=== PATIENT | female | born 1990 | race Caucasian/White ===

== ENCOUNTER 2017-08-15 06:01 | Day surgery (SDC) | payer BC ==
[2017-08-10 18:28] VITALS: BMI 22.4
--- NOTE | 2017-08-14 11:05 | P.HPOB ---
History of Present Illness H&P Date: 08/14/17 Chief Complaint: Missed This patient is a pleasant 27 yr female estimated gestational age 6-7 weeks who is presenting for a suction D&C secondary to a missed . She has had serial ultrasounds showing an abnormal gestational yolk. She did at one point have a faint heart beat, however this stopped. She and I and her have discussed options and she wishes to proceed with a suction D&C for treatment. Review of Systems Constitutional: Denies chills, Denies fever Ears, nose, mouth and throat: Denies headache, Denies sore throat Respiratory: Denies cough Genitourinary: Reports Menstruation: Reports amenorrhea Past Medical History Additional Past Medical History / Comment(s): Blader issues as a child requiring surgical repair per Dr. St. History of Any Multi-Drug Resistant Organisms: None Reported Additional Past Surgical History / Comment(s): URETER REPAIRED AGE 8. EXC WISDOM TEETH. Past Anesthesia/Blood Transfusion Reactions: No Reported Reaction Past Psychological History: No Psychological Hx Reported Smoking Status: Never smoker Past Alcohol Use History: None Reported Past Drug Use History: None Reported - Past Family History Mother Family Medical History: No Reported History Medications and Allergies Home Medications Medication Instructions Recorded Confirmed Type Pnv No.95/Ferrous Fum/Folic AC 1 each PO DAILY 08/10/17 08/10/17 History [ Multivitamin Tablet] Allergies Allergy/AdvReac Type Severity Reaction Status Date / Time No Known Allergies Allergy Verified 08/10/17 18:08 Exam - OBG Physical Exam Abdomen: bowel sounds normal, no diffuse tenderness, no bruit present, no guarding noted, no hepatomegaly, no splenomegaly, no mass Vulva: both: normal Vagina: normal moisture, no discharge Cervix: no lesion, no discharge Uterus: normal size (About 6 weeks size), normal contour Results Ultasound shows a non-viable intrauterine about 6 weeks size. Assessment and Plan (1) Missed Narrative/Plan: This is a pleasant 27 yr female approximately 6 weeks gestation with a missed requesting suction D&C for treatment. I have discussed the surgery and risks in detail: infection, bleeding, possible uterine perforation. All of the patients questions have been answered and a written consent obtained. Status: Acute
[~2017-08-15 06:01] MED LIST: DEXAMETHASONE SOD PHOSPHATE 10 MG/ML 1 ML VIAL IV ONE; HYDROmorphone 0.5 MG/0.5 ML SYRINGE IVP PRN; LACTATED RINGERS 1,000 ML IV SCH; LIDOCAINE 1% 20 ML VIAL (10MG/ML) FOR IV START INTRADERMA PRN; ONDANSETRON 4 MG/2 ML VIAL IVP ONE; Pre Op ABX Message 1 EACH MISC MISCELLANE ONE; SCOPOLAMINE 1.5MG/72HR PATCH TRANSDERM ONE
[2017-08-15] MEDS ORDERED: fentaNYL (PF) 50 MCG/ML 2 ML AMP ONE (06:55)
[2017-08-15] MEDS ORDERED: KETOROLAC 30 MG/ML 1 ML VIAL ONE (06:55)
[2017-08-15] MEDS ORDERED: LIDOCAINE 1% INJ 10MG/ML (20 ML MDV) ONE (06:55)
[2017-08-15] MEDS ORDERED: MIDAZOLAM 2 MG/2 ML VIAL ONE (06:55)
[2017-08-15] MEDS ORDERED: PROPOFOL 10 MG/ML 20 ML VIAL IV ONE (06:55)
[2017-08-15 07:30] VITALS: TEMP 97
--- NOTE | 2017-08-15 07:30 | P.OP ---
Date of Procedure: 08/15/17 Preoperative Diagnosis: Missed 6 weeks. Postoperative Diagnosis: Same Procedure(s) Performed: Suction D&C Anesthesia: MAC Surgeon: Primo Turk Estimated Blood Loss (ml): 100 Urine output (ml): 25 Pathology: other (Uterine contents) Condition: stable Disposition: PACU Indications for Procedure: Please see dictated H&P for intimate details of this patient's admission. Brief summary is a pleasant 27-year-old 1 para 0 female estimated gestational age 6 weeks who's had serial ultrasounds most recently showing nonviable . Patient I discussed options including expected management versus D&C and she is elected to proceed with D&C at this time. Patient does understand this procedure and risks including risks of infection, bleeding, possible uterine perforation. All the patient's questions are answered and a written consent is obtained. Operative Findings: Uterine contents consistent with products of conception Description of Procedure: This patient is taken to the operating room where she is laid in the supine position. She subsequently undergoes general mask anesthesia without incident. With an adequate level of anesthesia she's placed in dorsal lithotomy position. She has a vaginal perineal prep and drape. Examination under anesthesia shows a mid to anteverted uterus. I then place a red Cesar catheter and the bladder and drain the urine for 25 mL. Weighted speculum was placed in the posterior vagina. The anterior lip of the cervix was grabbed with an Allis clamp. The cervix is quite stenotic but is dilated to allow a 8 curved suction curette into the uterine cavity. Suction is applied and a generous amount of tissue is removed. Multiple passes are done until no further tissue was noted. A sharp curet is then gently placed in the uterine cavity and 4 quadrant curettage is done for no further tissue. A final pass of the suction curet is done again no further tissue was noted. With this done the procedure is then ended. The Allis clamp and weighted speculum was removed. All counts are correct 3. There are no complications. Patient is awakened from anesthesia and taken recovery room in satisfactory condition.
[2017-08-15 08:19] VITALS: RESP 18
[2017-08-15 08:41] VITALS: BP 112/82; PULSE 74
[2017-08-26 14:31] LABS: Mis test requested (Non-blood) DNA PLOIDY
== END 2017-08-15 09:00 | disposition home or self-care (01) ==
LOC: OR 06:01
PROVIDERS: ATTEND Obstetrics & Gynecology
DX: O02.1 Missed abortion (principal); N88.2 Stricture and stenosis of cervix uteri; Z3A.01 Less than 8 weeks gestation of pregnancy
CPT/HCPCS: 59820; 88182; 88305; J2250; J1100; J2405; J2001; J3010; J1885; J2704; J1170

== ENCOUNTER → 2018-05-10 | Outpatient (CLI) | payer BC ==
[2018-05-10 11:59] LABS: HCT 34.5 % (34.0-46.0); HGB 12.8 gm/dL (11.4-16.0); MCH 31.9 pg (25.0-35.0); MCV 86.3 fL (80.0-100.0); Mean Platelet Volume 7.3; Platelet Count 226 k/uL (150-450); RDW 12.6 % (11.5-15.5); WBC 8.3 k/uL (3.8-10.6)
[2018-05-10 12:51] LABS: Glucose 77 mg/dL (74-99)
[2018-05-10 18:19] LABS: HIV AB P24 Non-Reactive (Non-Reactive); HIV P24 AG Non-Reactive (Non-Reactive)
== END | disposition home or self-care (01) ==
LOC: LABWHC1 11:28
PROVIDERS: ATTEND Obstetrics & Gynecology
DX: O26.811 Pregnancy related exhaustion and fatigue, first trimester (principal); Z3A.00 Weeks of gestation of pregnancy not specified
CPT/HCPCS: 36415; 82565; 82947; 85027; 86592; 86762; 86850; 86900; 86901; 87340; 87390

== ENCOUNTER 2018-11-03 16:40 | Inpatient (IN) | payer BC ==
[2018-11-03 17:12] LABS: Appearance,Urine Clear (Clear); Bacteria,Urine Rare /hpf; Bilirubin,Urine Negative (Negative); Blood,Urine Negative (Negative); Color,Urine Yellow; Glucose,Urine (UA) Negative (Negative); Ketones,Urine 2+ (Negative); Leukocyte Esterase,Urine Trace (Negative); Mucus,Urine Rare /hpf; Nitrite,Urine Negative (Negative); PH, Urine 6.5 (5.0-8.0); Protein,Urine Trace (Negative); RBC,Urine 3 /hpf (0-5); Specific Gravity,Urine 1.019 (1.001-1.035); Squamous Epithelial Cell,Urine 1 /hpf (0-4); Urobilinogen,Urine <2.0 mg/dL (<2.0); WBC,Urine 6 /hpf (0-5)
[2018-11-03] MEDS ORDERED: DINOPROSTONE 10 MG INSERT.ER VAGINAL ONE (17:44)
[2018-11-03 17:55] LABS: Basophils % (A) 0 %; Eosinophils # (A) 0.1 k/uL (0-0.7); Eosinophils % (A) 1 %; HCT 34.3 % (34.0-46.0); HGB 11.2 gm/dL (11.4-16.0); Lymphocytes # (A) 1.6 k/uL (1.0-4.8); Lymphocytes % (A) 20 %; MCH 27.6 pg (25.0-35.0); MCHC 32.6 g/dL (31.0-37.0); MCV 84.9 fL (80.0-100.0); Monocytes # (A) 0.4 k/uL (0-1.0); Monocytes % (A) 5 %; Neutrophils # (A) 5.5 k/uL (1.3-7.7); Neutrophils % (A) 69 %; Platelet Count 288 k/uL (150-450); RBC 4.04 m/uL (3.80-5.40); RDW 13.1 % (11.5-15.5)
[2018-11-03 18:07] LABS: ALT 34 U/L (9-52); AST 21 U/L (14-36); Blood Urea Nitrogen 16 mg/dL (7-17); LDH 397 U/L (313-618); Uric Acid 5.2 mg/dL (3.7-7.4)
[2018-11-03 18:16] VITALS: BMI 28.1
--- NOTE | 2018-11-03 19:54 | P.HPOB ---
History of Present Illness H&P Date: 11/03/18 Chief Complaint: Gestational hypertension This patient is a pleasant 28-year-old 2 para 0 female estimated date of confinement 11/12/2018 estimated gestational age 38-5/7 weeks who presented to my office today for routine visit on have elevated diastolic blood pressure. Patient sent to labor and delivery for evaluation and labs were normal but had multiple blood pressures with a diastolic greater than 90. Patient's on have any symptomatology at this time however I discussed current guidelines recommending delivery after 37 weeks if persistent elevated systolic or diastolic blood pressures. Patient's cervix is dilated. Patient's is complicated by the left choroid plexus cyst which resolved and she is had a normal level III ultrasound. care is otherwise been uncomplicated. Review of Systems Genitourinary: Reports Menstruation: Reports amenorrhea Past Medical History Additional Past Medical History / Comment(s): Blader issues as a child requiring surgical repair per Dr. St. History of Any Multi-Drug Resistant Organisms: None Reported Additional Past Surgical History / Comment(s): URETER REPAIRED AGE 8. EXC WISDOM TEETH. Past Anesthesia/Blood Transfusion Reactions: No Reported Reaction Past Psychological History: No Psychological Hx Reported Smoking Status: Never smoker Past Alcohol Use History: None Reported Past Drug Use History: None Reported - Past Family History Mother Family Medical History: No Reported History Medications and Allergies Home Medications Medication Instructions Recorded Confirmed Type Pnv No.95/Ferrous Fum/Folic AC 1 each PO DAILY 08/10/17 11/03/18 History [ Multivitamin Tablet] Allergies Allergy/AdvReac Type Severity Reaction Status Date / Time No Known Allergies Allergy Verified 08/10/17 18:08 Exam Vital Signs Temp Resp BP 11/03/18 18:08 97.3 F L 16 126/89 Intake and Output 11/03/18 11/03/18 11/03/18 06:59 14:59 22:59 Other: Weight 65.317 kg - OBG Physical Exam Abdomen: bowel sounds normal, no diffuse tenderness, no bruit present, no guarding noted, no hepatomegaly, no splenomegaly, no mass Vulva: both: normal Vagina: normal moisture, no discharge Cervix: no lesion (Cervix is fingertip approximately 50% effaced.), no discharge Uterus: enlarged (Fundal height is 37 cm) Results blood work shows she is O positive, rubella indeterminate, hepatitis B negative, HIV nonreactive, RPR nonreactive, Glucola was normal, ultrasounds have been normal Result Diagrams: 11/03/18 17:43 11/03/18 17:43 Abnormal Lab Results - Last 24 Hours (Table) 11/03/18 11/03/18 Range/Units 17:00 17:43 Hgb 11.2 L (11.4-16.0) gm/dL Urine Protein Trace H (Negative) Urine Ketones 2+ H (Negative) Ur Leukocyte Esterase Trace H (Negative) Urine WBC 6 H (0-5) /hpf Urine Bacteria Rare H (None) /hpf Urine Mucus Rare H (None) /hpf Assessment and Plan Assessment: This is a pleasant 28-year-old 2 para 0 female 38-5/7 weeks' gestation with gestational hypertension. Preeclampsia evaluation is negative. Due to the gestational age current recommendations are to proceed with delivery at this time. Patient is a unfavorable cervix therefore Cervidil be placed to proceed with most likely Pitocin induction of labor tomorrow. Discussed the patient's clinical situation indication for delivery. Patient is in agreement wishes to proceed. (1) with 38 completed weeks gestation Current Visit: Yes Status: Acute Code(s): Z3A.38 - 38 WEEKS GESTATION OF SNOMED Code(s): 73651979 (2) Gestational hypertension Current Visit: Yes Status: Acute Code(s): O13.9 - GESTATIONAL HTN W/O SIGNIFICANT PROTEINURIA, UNSP TRIMESTER SNOMED Code(s): 881958126
[2018-11-04] MEDS ORDERED: TERBUTALINE 1 MG/ML VIAL SQ PRN (02:36)
[2018-11-04] MEDS ORDERED: OXYTOCIN 20 UNITS/1000 ML NS 1,000 ML IV SCH ×2 (02:36→20:45)
[2018-11-04] MEDS ORDERED: METHYLERGONOVINE 0.2 MG/ML 1 ML AMP IM PRN (02:36)
[2018-11-04] MEDS ORDERED: OXYTOCIN 10 UNIT/ML 1 ML VIAL IM PRN (02:36)
[2018-11-04] MEDS ORDERED: CARBOPROST TROMETHAMINE 250 MCG/ML 1 ML AMP IM PRN (02:36)
[2018-11-04] MEDS ORDERED: LIDOCAINE 0.5% (PF) 5 MG/ML (50 ML SDV) SQ PRN (02:36)
[2018-11-04] MEDS: LACTATED RINGERS 1,000 ML IV SCH ×4 (02:40→18:36)
[2018-11-04] MEDS: BUTORPHANOL 1 MG/ML 1 ML VIAL IV PRN ×3 (02:46→09:10)
[2018-11-04] MEDS ORDERED: SODIUM CHLORIDE 0.9% 100 ML BAG ONE ×2 (10:27)
[2018-11-04] MEDS ORDERED: ROPIVACAINE 5MG/ML 20ML VIAL ONE (10:27)
--- NOTE | 2018-11-04 20:31 | P.PROBDLV ---
Vaginal Delivery Note - . Vaginal Delivery Note: Normal vaginal delivery viable male infant Apgars 9 and 9 delivery time is 2008 hours. Please see dictated H&P for intimate details of this patient's admission. Brief summary this is a pleasant 28-year-old 1 para 0 female 38-6/7 weeks gestation admitted last evening for Cervidil placement secondary to gestational hypertension.'s morning patient is approximately 1-2 simmers dilated is artificial rupture membranes for clear fluid. Labor is induced with Pitocin per protocol. Patient's labor progresses normally and she does get an epidural for pain control. Patient does get to complete and pushes for approximately 1 hour and 15 minutes and pushes the head to the perineum. At this time it is evident the perineum is tearing and therefore a small midline episiotomy is made. We then have controlled delivery of infant's head over the perineum. Mouth and nares are bulb suctioned. There is no evidence of nuchal cord. 's position was straight OA at this time. With gentle downward traction we have delivery the anterior and posterior shoulder and rest this 's body. Is a vigorous viable male Apgars are 9 and 9 delivery time is 2009 hours. After delivery of the the umbilical cord is sloughed to quit pulsating and then clamped. It is then transected and thought to be trivascular. Placenta spontaneously delivered intact. Estimated blood loss is 1 50 mL. There is a second-degree laceration was repaired with 3- 0 Vicryl usual fashion good reapproximation is noted. All counts are correct 3. There are no complications. Infant and mother stable delivery room.
[2018-11-04] MEDS ORDERED: BISACODYL 10 MG SUPP RECTAL PRN (20:32)
[2018-11-04] MEDS ORDERED: WITCH HAZEL 1 EACH MED..PAD TOPICAL PRN (20:32)
[2018-11-04] MEDS ORDERED: BENZOCAINE/MENTHOL SPRAY 1 GM/SPRAY AEROSOL TOPICAL PRN (20:32)
[2018-11-04] MEDS ORDERED: SIMETHICONE 80 MG CHEWABLE PO PRN (20:32)
[2018-11-04] MEDS ORDERED: diphenhydrAMINE 25 MG CAP PO PRN (20:32)
[2018-11-04] MEDS ORDERED: LANOLIN CREAM 5 GM TUBE TOPICAL PRN (20:32)
[2018-11-04] MEDS ORDERED: MEASLES-MUMPS-RUBELLA VACC/PF 12,500 UNIT/0.5 ML VIAL SQ ONE (20:32)
[2018-11-04] MEDS ORDERED: ACETAMINOPHEN TAB 325 MG TAB PO PRN (20:32)
[2018-11-04] MEDS ORDERED: ZOLPIDEM 5 MG TAB PO PRN (20:32)
[2018-11-04] MEDS ORDERED: diphenhydrAMINE 50 MG/ML 1 ML VIAL IVP PRN (20:32)
[2018-11-04] MEDS ORDERED: HYDROCORTISONE 2.5% RECTAL CREAM 30 GM TUBE RECTAL PRN (20:32)
[2018-11-04] MEDS: IBUPROFEN 600 MG TAB PO PRN (20:45)
[2018-11-05] MEDS: IBUPROFEN 600 MG TAB PO PRN ×3 (03:34→20:51)
[2018-11-05 06:27] LABS: Basophils % (A) 0 %; Eosinophils % (A) 0 %; HCT 29.1 % (34.0-46.0); Lymphocytes # (A) 1.3 k/uL (1.0-4.8); Lymphocytes % (A) 9 %; MCHC 32.4 g/dL (31.0-37.0); MCV 86.5 fL (80.0-100.0); Monocytes # (A) 0.7 k/uL (0-1.0); Monocytes % (A) 5 %; Neutrophils # (A) 12.2 k/uL (1.3-7.7); Neutrophils % (A) 84 %; Platelet Count 285 k/uL (150-450); RBC 3.37 m/uL (3.80-5.40); RDW 13.5 % (11.5-15.5); WBC 14.5 k/uL (3.8-10.6)
[2018-11-05 06:34] LABS: HGB 9.4 gm/dL (11.4-16.0)
--- NOTE | 2018-11-05 06:58 | P.PNOBGVD ---
Subjective - Subjective Patient reports: Reports appetite normal, Reports voiding normally, Reports pain well controlled, Reports ambulating normally : doing well Objective - Latest Vital Signs Latest vital signs: Vital Signs Temp Pulse Resp BP 11/05/18 03:41 97.6 F 82 16 120/71 11/05/18 00:14 98.4 F 91 16 121/80 11/04/18 22:18 97.0 F L 85 18 134/78 11/04/18 21:48 98.4 F 85 18 142/81 11/04/18 21:18 98.4 F 76 16 143/82 11/04/18 21:03 98.0 F 16 11/04/18 20:48 94 18 131/70 11/04/18 20:33 107 H 18 128/68 11/04/18 20:18 97.4 F L 100 18 128/83 Intake and Output 11/04/18 11/04/18 11/05/18 14:59 22:59 06:59 Intake Total 3000 42.05 1000 Output Total 150 Balance 3000 -107.95 1000 Intake: IV 3000 Lactated Ringers 1,000 ml 3000 @ 125 mls/hr IV .Q8H [facility] Rx#:[id number] Intake, IV Titration 42.05 1000 Amount Oxytocin 20 Units/1000 ml 42.05 Ns 1,000 ml @ 1 MILLIUNIT/MIN 3 mls/hr IV .Q24H [facility] Rx#:[id number] Oxytocin 20 Units/1000 ml 1000 Ns 1,000 ml @ Per Protocol IV .Q0M [facility] Rx#: [id number] Output: Estimated Blood Loss 150 Other: # Voids 1 1 - Exam Lungs: bilateral: normal Chest: Normal S1, Normal S2 Extremities: Present: normal Abdomen: Present: normal appearance, soft Uterus: Present: normal, firm - Labs Labs: Abnormal Lab Results - Last 24 Hours (Table) 11/05/18 Range/Units 06:16 WBC 14.5 H (3.8-10.6) k/uL RBC 3.37 L (3.80-5.40) m/uL Hgb 9.4 L D (11.4-16.0) gm/dL Hct 29.1 L (34.0-46.0) % Neutrophils # 12.2 H (1.3-7.7) k/uL Microbiology - Last 24 Hours (Table) 11/03/18 17:00 Urine Culture - Final Urine,Clean Catch Assessment and Plan Assessment: Patient is resting without complaints. Vital signs are stable and she is afebrile. Uterus is firm nontender she's having normal lochia. My impression is this is a normal course. Plan is to continue routine care. (1) with 38 completed weeks gestation Current Visit: Yes Status: Acute Code(s): Z3A.38 - 38 WEEKS GESTATION OF SNOMED Code(s): 27725115 (2) Gestational hypertension Current Visit: Yes Status: Acute Code(s): O13.9 - GESTATIONAL HTN W/O SIGNIFICANT PROTEINURIA, UNSP TRIMESTER SNOMED Code(s): 531413893
[2018-11-05] MEDS: SENNOSIDES-DOCUSATE SODIUM 1 EACH TAB PO SCH ×2 (09:41→20:06)
[2018-11-05 20:57] VITALS: RESP 18
--- NOTE | 2018-11-06 06:11 | P.PNOBGVD ---
Subjective - Subjective Patient reports: Reports appetite normal, Reports voiding normally, Reports pain well controlled, Reports ambulating normally : doing well Objective - Latest Vital Signs Latest vital signs: Vital Signs Temp Pulse Resp BP Pulse Ox 11/06/18 00:00 98.4 F 97 18 132/93 98 11/05/18 20:00 98.4 F 113 H 18 130/78 98 11/05/18 16:00 97.8 F 84 16 134/82 11/05/18 08:00 97.4 F L 101 H 16 124/78 - Exam Lungs: bilateral: normal Chest: Normal S1, Normal S2 Extremities: Present: normal Abdomen: Present: normal appearance, soft Uterus: Present: normal, firm - Labs Labs: Abnormal Lab Results - Last 24 Hours (Table) 11/05/18 Range/Units 06:16 WBC 14.5 H (3.8-10.6) k/uL RBC 3.37 L (3.80-5.40) m/uL Hgb 9.4 L D (11.4-16.0) gm/dL Hct 29.1 L (34.0-46.0) % Neutrophils # 12.2 H (1.3-7.7) k/uL Microbiology - Last 24 Hours (Table) 11/03/18 17:00 Urine Culture - Final Urine,Clean Catch Assessment and Plan Assessment: day #2. Patient is resting without complaints. Vital signs are stable and she is afebrile. Uterus is firm nontender and she is having normal lochia. I impression is a normal course. Plan is to continue routine care discharge home later today. (1) with 38 completed weeks gestation Current Visit: Yes Status: Acute Code(s): Z3A.38 - 38 WEEKS GESTATION OF SNOMED Code(s): 11885215 (2) Gestational hypertension Current Visit: Yes Status: Acute Code(s): O13.9 - GESTATIONAL HTN W/O SIGNIFICANT PROTEINURIA, UNSP TRIMESTER SNOMED Code(s): 027706207
--- NOTE | 2018-11-06 06:14 | P.DS ---
Providers Date of admission: 11/03/18 17:35 Expected date of discharge: 11/06/18 Attending physician: Primo Turk Primary care physician: Stated None - Discharge Diagnosis(es) (1) with 38 completed weeks gestation Current Visit: Yes Status: Acute (2) Gestational hypertension Current Visit: Yes Status: Acute Hospital Course: Please see dictated H&P for intimate details of this patient's admission. Brief summary this is a pleasant 28-year-old 2 para 0 female who is admitted to labor and delivery with gestational hypertension. Patient is two- stage induction of labor and subsequently goes on have a vaginal delivery viable male infant. Please see dictated delivery note. day #2 patient's felt to be stable for discharge home follow up with me in 6 weeks. Procedures: Two-stage induction of labor and normal vaginal delivery Patient Condition at Discharge: Good Plan - Discharge Summary Discharge Rx Participant: No New Discharge Prescriptions: New Ibuprofen [Motrin] 600 mg PO Q6HR PRN #40 tab PRN Reason: Mild Pain Or Fever >= 100.5 No Action Pnv No.95/Ferrous Fum/Folic AC [ Multivitamin Tablet] 1 each PO DAILY Discharge Medication List Pnv No.95/Ferrous Fum/Folic AC [ Multivitamin Tablet] 1 each PO DAILY [History] Ibuprofen [Motrin] 600 mg PO Q6HR PRN #40 tab 11/06/18 [Rx] Follow up Appointment(s)/Referral(s): Primo Turk MD [STAFF PHYSICIAN] - 6 Weeks Patient Instructions/Handouts: Vaginal Delivery (DC) Activity/Diet/Wound Care/Special Instructions: No intercourse or anything per vagina for 6 weeks. Please call if any fever, chills, excessive vaginal bleeding, and/or abdominal pain. Discharge Disposition: HOME SELF-CARE
[2018-11-06] MEDS: IBUPROFEN 600 MG TAB PO PRN (07:17)
[2018-11-06] MEDS: SENNOSIDES-DOCUSATE SODIUM 1 EACH TAB PO SCH (08:00)
[2018-11-06 09:28] VITALS: BP 129/81; PULSE 75; TEMP 97.4
== END 2018-11-06 11:07 | disposition home or self-care (01) | DRG 807 ==
LOC: FBPOP 16:40 → 4FBP 17:35
PROVIDERS: ADMIT Obstetrics & Gynecology; ATTEND Obstetrics & Gynecology
PROC: 3E0P7VZ Introduction of Hormone into Female Reproductive, Via Natural or Artificial Opening (ICD-10-PCS; 2018-11-03)
PROC: 10E0XZZ Delivery of Products of Conception, External Approach (ICD-10-PCS; principal; 2018-11-04)
PROC: 0KQM0ZZ Repair Perineum Muscle, Open Approach (ICD-10-PCS; 2018-11-04)
PROC: 00HU33Z Insertion of Infusion Device into Spinal Canal, Percutaneous Approach (ICD-10-PCS; 2018-11-04)
PROC: 3E0R3BZ Introduction of Anesthetic Agent into Spinal Canal, Percutaneous Approach (ICD-10-PCS; 2018-11-04)
PROC: 0W8NXZZ Division of Female Perineum, External Approach (ICD-10-PCS; 2018-11-04)
PROC: 10907ZC Drainage of Amniotic Fluid, Therapeutic from Products of Conception, Via Natural or Artificial Opening (ICD-10-PCS; 2018-11-04)
PROC: 3E033VJ Introduction of Other Hormone into Peripheral Vein, Percutaneous Approach (ICD-10-PCS; 2018-11-04)
DX: O13.4 Gestational [pregnancy-induced] hypertension without significant proteinuria, complicating childbirth (principal); Z37.0 Single live birth; O70.1 Second degree perineal laceration during delivery; Z3A.38 38 weeks gestation of pregnancy
CPT/HCPCS: 59025; 81001; 82565; 83615; 84450; 84460; 84520; 84550; 85025; 86850; 86900; 86901; 87086; 90471; 90707; 99215

== ENCOUNTER → 2020-02-19 | Outpatient (CLI) | payer BC ==
--- NOTE | 2020-02-27 09:35 | MM ---
Reason for exam: clinical finding. Baseline mammogram. History: Took hormonal contraceptives for 12 years beginning at age 15. Indicated problem(s): lump or thickening in the left breast. Physical Findings: Nurse Summary: 1cm nodule in the left breast at 12 o'clock (nurse wes). MG Diagnostic Mammo w CAD DESTINEY Bilateral LM view(s) were taken. ML view(s) were taken of the left breast. The breast tissue is heterogeneously dense. This may lower the sensitivity of mammography. There is no discrete abnormality including area of concern. These results were verbally communicated with the patient and result sheet given to the patient on 02/19/20. ASSESSMENT: Negative, BI-RAD 1 RECOMMENDATION: Routine screening mammogram of both breasts at age 40. Manage patient on a clinical basis.
--- NOTE | 2020-02-27 09:38 | USB ---
Reason for exam: clinical finding. History: Took hormonal contraceptives for 12 years beginning at age 15. Indicated problem(s): lump or thickening in the left breast. US Breast LT Left complete breast ultrasound includes all four quadrants, the retroareolar region and axilla. Finding demonstrates no cystic or solid lesion seen. These results were verbally communicated with the patient and result sheet given to the patient on 02/19/20. ASSESSMENT: Incomplete: need additional imaging evaluation, BI-RAD 0 RECOMMENDATION: Special view mammogram of both breasts.
== END | disposition home or self-care (01) ==
LOC: RADMAMWWP 10:09
PROVIDERS: ATTEND Family Medicine
DX: N63.20 Unspecified lump in the left breast, unspecified quadrant (principal); R92.8 Other abnormal and inconclusive findings on diagnostic imaging of breast
CPT/HCPCS: 77066

== ENCOUNTER → 2020-08-06 | Outpatient (CLI) | payer BC ==
[2020-08-06 11:52] LABS: HCT 36.5 % (34.0-46.0); HGB 12.6 gm/dL (11.4-16.0); MCH 30.6 pg (25.0-35.0); MCHC 34.4 g/dL (31.0-37.0); MCV 88.9 fL (80.0-100.0); Mean Platelet Volume 7.6; Platelet Count 262 k/uL (150-450); RBC 4.11 m/uL (3.80-5.40); RDW 11.6 % (11.5-15.5); WBC 7.4 k/uL (3.8-10.6)
[2020-08-06 20:21] LABS: HIV 2 AB Non-Reactive (Non-Reactive); HIV AB P24 Non-Reactive (Non-Reactive); HIV P24 AG Non-Reactive (Non-Reactive)
[2020-08-06 22:46] LABS: African American GFR (CKD) 141.8 (60.0-200.0); Non-African American GFR(CKD) 122.3 (60.0-200.0)
== END | disposition home or self-care (01) ==
LOC: LABWHC1 09:41
PROVIDERS: ATTEND Obstetrics & Gynecology
DX: Z34.81 Encounter for supervision of other normal pregnancy, first trimester (principal)
CPT/HCPCS: 36415; 82565; 82947; 85027; 86762; 86780; 86900; 86901; 87390

== ENCOUNTER → 2020-08-28 | Outpatient (CLI) | payer BC | END | disposition home or self-care (01) | LOC: LABWHC1 14:58 | PROVIDERS: ATTEND Physician Assistant | DX: Z20.828 Contact with and (suspected) exposure to other viral communicable diseases (principal) ==

== ENCOUNTER 2021-03-04 05:55 | Inpatient (IN) | payer BC, OTHER ==
--- NOTE | 2021-03-03 08:20 | P.HPOB ---
History of Present Illness H&P Date: 03/03/21 Chief Complaint: Requested induction of labor This patient is a pleasant 30-year-old 3 para 1 female estimated date of confinement 03/07/2021 estimated gestational age 39-4/7 weeks who presents to labor and delivery for requested induction of labor secondary to maternal discomfort. Patient's care has been uncomplicated. Patient does have a history of gestational hypertension but was on baby aspirin this has had no blood pressure problems. Patient also developed Covid on January 12. Patient is now uncomfortable requesting induction of labor. Review of Systems Genitourinary: Reports Menstruation: Reports amenorrhea Past Medical History Additional Past Medical History / Comment(s): Blader issues as a child requiring surgical repair per Dr. St. Covid infection January 12. History of Any Multi-Drug Resistant Organisms: None Reported Additional Past Surgical History / Comment(s): URETER REPAIRED AGE 8. EXC WISDOM TEETH. D&C. Past Anesthesia/Blood Transfusion Reactions: No Reported Reaction Past Psychological History: No Psychological Hx Reported Smoking Status: Never smoker Past Alcohol Use History: None Reported Past Drug Use History: None Reported - Past Family History Mother Family Medical History: No Reported History Medications and Allergies Home Medications Medication Instructions Recorded Confirmed Type Pnv No.95/Ferrous Fum/Folic AC 1 each PO DAILY 08/10/17 11/03/18 History [ Multivitamin Tablet] Ibuprofen [Motrin] 600 mg PO Q6HR PRN #40 tab 11/06/18 Rx Allergies Allergy/AdvReac Type Severity Reaction Status Date / Time No Known Allergies Allergy Verified 08/10/17 18:08 Exam - OBG Physical Exam Abdomen: bowel sounds normal, no diffuse tenderness, no bruit present, no guarding noted, no hepatomegaly, no splenomegaly, no mass Vulva: both: normal Vagina: normal moisture, no discharge Cervix: no lesion (Cervix in the office 2 cm dilated -2 station.), no discharge Uterus: enlarged (Fundal height is 39 cm) Results blood work shows she is O positive, rubella immune, RPR nonreactive, HIV is nonreactive, hepatitis B is negative, Glucola was normal, group B strep was negative, TDap was given on December 31, most recent ultrasound showed normal growth and anatomy. Assessment and Plan Assessment: This is a pleasant 30-year-old 3 para 1 female 39-4/7 weeks gestation who presents to labor and delivery for requested induction of labor. Plan is induction of labor and anticipate vaginal delivery. (1) 39 weeks gestation of Status: Acute Code(s): Z3A.39 - 39 WEEKS GESTATION OF SNOMED Code(s): 34823552 (2) Elective induction of labor planned Status: Acute Code(s): UDQ0890 - SNOMED Code(s): 062743680
[2021-03-04] MEDS ORDERED: METHYLERGONOVINE 0.2 MG/ML 1 ML AMP IM PRN (06:10)
[2021-03-04] MEDS ORDERED: TERBUTALINE 1 MG/ML VIAL SQ PRN (06:10)
[2021-03-04] MEDS ORDERED: OXYTOCIN 30 UNITS/500 ML NS 30 UNIT in SALINE 1 500ML.BAG IV SCH ×2 (06:10→14:26)
[2021-03-04] MEDS ORDERED: LIDOCAINE 0.5% (PF) 5 MG/ML (50 ML SDV) SQ PRN (06:10)
[2021-03-04] MEDS ORDERED: OXYTOCIN 10 UNIT/ML 1 ML VIAL IM PRN (06:10)
[2021-03-04] MEDS ORDERED: CARBOPROST TROMETHAMINE 250 MCG/ML 1 ML AMP IM PRN (06:10)
[2021-03-04] MEDS: LACTATED RINGERS 1,000 ML IV SCH ×2 (06:36→09:33)
[2021-03-04 07:05] LABS: Basophils % (A) 0 %; Eosinophils # (A) 0.1 k/uL (0-0.7); Eosinophils % (A) 1 %; HCT 31.7 % (34.0-46.0); HGB 10.9 gm/dL (11.4-16.0); Lymphocytes # (A) 1.3 k/uL (1.0-4.8); Lymphocytes % (A) 21 %; MCH 27.9 pg (25.0-35.0); MCHC 34.4 g/dL (31.0-37.0); Mean Platelet Volume 8.6; Monocytes # (A) 0.5 k/uL (0-1.0); Monocytes % (A) 8 %; Neutrophils # (A) 4.5 k/uL (1.3-7.7); Neutrophils % (A) 69 %; Platelet Count 214 k/uL (150-450); RBC 3.91 m/uL (3.80-5.40); RDW 13.4 % (11.5-15.5); WBC 6.5 k/uL (3.8-10.6)
[2021-03-04] MEDS ORDERED: BUTORPHANOL 1 MG/ML 1 ML VIAL IV PRN (08:18)
[2021-03-04] MEDS ORDERED: fentaNYL (PF) 50 MCG/ML 5 ML AMP ONE (09:11)
[2021-03-04] MEDS ORDERED: SODIUM CHLORIDE 0.9% 100 ML BAG ONE (09:11)
[2021-03-04] MEDS ORDERED: ROPIVACAINE 5MG/ML 20ML VIAL ONE (09:11)
[2021-03-04] MEDS ORDERED: bisacodyL 10 MG SUPP RECTAL PRN (14:26)
[2021-03-04] MEDS ORDERED: SIMETHICONE 80 MG CHEWABLE PO PRN (14:26)
[2021-03-04] MEDS ORDERED: HYDROCORTISONE 2.5% RECTAL CREAM 30 GM TUBE RECTAL PRN (14:26)
[2021-03-04] MEDS ORDERED: LANOLIN CREAM 5 GM TUBE TOPICAL PRN (14:26)
[2021-03-04] MEDS ORDERED: diphenhydrAMINE 50 MG/ML 1 ML VIAL IVP PRN (14:26)
[2021-03-04] MEDS ORDERED: BENZOCAINE/MENTHOL SPRAY 1 GM/SPRAY AEROSOL TOPICAL PRN (14:26)
[2021-03-04] MEDS ORDERED: diphenhydrAMINE 25 MG CAP PO PRN (14:26)
[2021-03-04] MEDS ORDERED: ZOLPIDEM 5 MG TAB PO PRN (14:26)
[2021-03-04] MEDS: IBUPROFEN 600 MG TAB PO SCH ×2 (15:28→21:01)
[2021-03-04] MEDS: SENNOSIDES-DOCUSATE SODIUM 1 EACH TAB PO SCH ×2 (15:29→19:50)
--- NOTE | 2021-03-04 16:29 | P.PROBDLV ---
Vaginal Delivery Note - . Vaginal Delivery Note: Normal vaginal delivery viable female Apgars 8 and 9 delivery time is 1419 hrs. Please see dictated H&P for history of this patient's admission. In brief summary this is a pleasant 30-year-old 3 para 1 female 39-4/7 weeks who presents to labor and delivery for requested induction of labor. Patient is admitted she is 2 cm dilated has artificial rupture membranes for clear fluid. Labor is induced with Pitocin per protocol. Patient does get an epidural at 3 cm for pain control. Patient quickly progresses thereafter and pushes approximate 25 minutes. She pushes the head to the perineum. Posterior perineum is supported and we have controlled delivery of the infant's head over the intact perineum. Mouth and nares are bulb suctioned. There is no evidence of a nuchal cord. With gentle downward traction we then have delivery anterior and posterior shoulder and rest this infant's body. This is a vigorous viable female Apgars are 8 and 9 delivery time is 1419 hrs. After delivery of the infant the umbilical cord is allowed to quit pulsating is then doubly clamped and cut appears to be trivascular. Placenta is then spontaneously delivered intact. Estimated blood loss is approximately 100 mL. There is a small first-degree posterior laceration is repaired with 3-0 Vicryl usual fashion. There is bilateral periurethral lacerations did not require repair. Infant and mother stable delivery room. All counts correct 3. There are no complications.
[2021-03-04 20:33] VITALS: RESP 16
[2021-03-04] MEDS: ACETAMINOPHEN TAB 325 MG TAB PO PRN (23:14)
[2021-03-05] MEDS: IBUPROFEN 600 MG TAB PO SCH ×2 (04:09→11:21)
--- NOTE | 2021-03-05 06:29 | P.PNOBGVD ---
Subjective - Subjective Patient reports: Reports appetite normal, Reports voiding normally, Reports pain well controlled, Reports ambulating normally : doing well Objective - Latest Vital Signs Latest vital signs: Vital Signs Temp Pulse Resp BP 03/04/21 23:12 97.8 F 67 16 141/85 03/04/21 20:00 98.0 F 95 16 116/76 03/04/21 16:30 98.4 F 67 18 137/71 03/04/21 16:00 98.2 F 68 18 125/66 03/04/21 15:30 97.8 F 78 18 118/66 03/04/21 15:15 72 125/65 03/04/21 15:00 98.0 F 76 18 125/66 03/04/21 14:45 76 117/62 03/04/21 14:30 97.6 F 86 18 118/74 Intake and Output 03/04/21 03/04/21 03/05/21 14:59 22:59 06:59 Intake Total 8.2 Output Total 150 Balance -141.8 Intake: Intake, IV Titration 8.2 Amount Oxytocin 30 Units/500 ml 8.2 Ns 30 unit In Saline 1 500ml.bag @ Per Protocol IV .Q0M [facility] Rx#:[id number] Output: Estimated Blood Loss 150 Other: # Voids 1 2 - Exam Lungs: bilateral: normal Chest: Normal S1, Normal S2 Extremities: Present: normal Abdomen: Present: normal appearance, soft Uterus: Present: normal, firm - Labs Labs: Abnormal Lab Results - Last 24 Hours (Table) 03/04/21 Range/Units 06:14 Hgb 10.9 L (11.4-16.0) gm/dL Hct 31.7 L (34.0-46.0) % Assessment and Plan Assessment: day #1. Patient is resting without complaints and wishes to go home. Vital signs are stable she is afebrile. Uterus is firm nontender and she is having normal lochia. My impression this is a normal course. Plan is to continue routine care discharge home later today. (1) 39 weeks gestation of Current Visit: No Status: Acute Code(s): Z3A.39 - 39 WEEKS GESTATION OF SNOMED Code(s): 84928933 (2) Elective induction of labor planned Current Visit: No Status: Acute Code(s): KOO6382 - SNOMED Code(s): 559279003
--- NOTE | 2021-03-05 06:33 | P.DS ---
Providers Date of admission: 03/04/21 05:55 Expected date of discharge: 03/05/21 Attending physician: Primo Turk Primary care physician: Stated None - Discharge Diagnosis(es) (1) 39 weeks gestation of Current Visit: No Status: Acute (2) Elective induction of labor planned Current Visit: No Status: Acute Hospital Course: Please see dictated H&P for intimate details of this patient's admission. Brief summary is a pleasant 30-year-old 3 para 1 female 39-4/7 weeks gestation who is admitted to labor and delivery for requested induction of labor. Patient is admitted she quickly goes on have a vaginal delivery viable female infant. Please see dictated delivery note. day 1 patient without complaints and wishes to go home. Patient's felt be stable for discharge home follow up with me in 6 weeks Procedures: Induction of labor and normal vaginal delivery Patient Condition at Discharge: Good Plan - Discharge Summary New Discharge Prescriptions: New Ibuprofen [Motrin] 600 mg PO Q6H #30 tab Discharge Medication List Ibuprofen [Motrin] 600 mg PO Q6H #30 tab 03/05/21 [Rx] Follow up Appointment(s)/Referral(s): Primo Turk MD [STAFF PHYSICIAN] - 04/23/21 10:30 am Patient Instructions/Handouts: Vaginal Delivery (DC) Activity/Diet/Wound Care/Special Instructions: No intercourse or anything per vagina for 6 weeks. Please call if any fever, chills, excessive vaginal bleeding, and/or abdominal pain. Discharge Disposition: HOME SELF-CARE
[2021-03-05] MEDS: SENNOSIDES-DOCUSATE SODIUM 1 EACH TAB PO SCH (08:12)
[2021-03-05] MEDS: ACETAMINOPHEN TAB 325 MG TAB PO PRN ×2 (08:12→15:55)
[2021-03-05 09:25] VITALS: BP 117/70; PULSE 74; TEMP 98.2
== END 2021-03-05 15:55 | disposition home or self-care (01) | DRG 807 ==
LOC: 4FBP 05:55
PROVIDERS: ADMIT Obstetrics & Gynecology; ATTEND Obstetrics & Gynecology
PROC: 10E0XZZ Delivery of Products of Conception, External Approach (ICD-10-PCS; principal; 2021-03-04)
DX: O71.82 Other specified trauma to perineum and vulva (principal); Z37.0 Single live birth; Z3A.39 39 weeks gestation of pregnancy
CPT/HCPCS: 85025; 86850; 86900; 86901